=== PATIENT | female | born 1955 | race Caucasian/White ===

== ENCOUNTER 2017-07-25 05:26 | Inpatient (IN) | payer BC ==
[~2017-07-25] VITALS: Ht 165.1 cm; Wt 88.9 kg
[2017-07-25] VITALS (13 sets, daily range): BP systolic 105–139; BP diastolic 44–72
[~2017-07-25 05:26] MED LIST: FLUO20CA36 PO
--- NOTE | 2017-07-25 05:40 | NUR ---
RN NOTES ADMITTED A 62 YEARS OLD FEMALE PT FROM HOME WITH PRIMARY DIAGNOSIS OF LEFT KNEE OSTEOARTHRITIS FOR LEFT KNEE TOTAL ARTHROPLASTY. PT ALERT AND ORIENTED X4, VITAL SIGNS STABLE. PT DENIES ANY PAIN AND DISCOMFORT AT THIS TIME. SKIN AND BODY ASSESSMENT DONE, SKIN CLEAR AND INTACT. IV ACCESS STARTED ON LEFT HAND WITH G20, WITH GOOD BLOOD RETURN. PER PT SHE LAST ATE AT 8PM LAST NIGHT. PLAN OF CARE DISCUSSED WITH THE PT. WILL CONTINUE TO MONITOR PT.
--- NOTE | 2017-07-25 07:40 | NUR ---
RN NOTES PT RESTING COMFORTABLY IB BED, DENIES ANY DISCOMFORT. AWAITING FOR SCHEDULE OF SURGERY. ENDORSED TO MORNING RN FOR CONTINUITY OF CARE.
[2017-07-25] MEDS ORDERED: ACETAMINOPHEN 325 MG TABLET ONE (07:42)
[2017-07-25] MEDS ORDERED: CELECOXIB 100 MG CAPSULE ONE (07:42)
[2017-07-25] MEDS ORDERED: oxyCODONE HCL SR 10MG TAB.SR.12H PO ONE (07:42)
--- NOTE | 2017-07-25 07:43 | NUR ---
MS RN: INITIAL NOTE RECEIVED PT A/OX4. SCHEDULED FOR L KNEE ARTHOPLASTY WITH MD ZIMMERMAN IN THE AM. CONSENT SIGNED, CHECKLIST COMPLETE. PT BRP. SKIN INTACT. AMBULATORY. NPO SINCE LAST NIGHT. L HAND #20 IV HL. SITE CLEAR AND PATENT. NO DISTRESS NOTED. NO SOB NOTED. VS STABLE. TAKEN TO OR FOR SURGERY AT 7:30.
[2017-07-25] MEDS ORDERED: MIDAZOLAM HCL 2 MG/2ML VIAL ONE (08:09)
[2017-07-25] MEDS ORDERED: MORPHINE SULFATE/PF 10 MG/10ML (1MG/ML) AMPUL ONE (08:09)
[2017-07-25] MEDS ORDERED: FENTANYL PF 100MCG/2ML AMPUL ONE (08:09)
[2017-07-25] MEDS ORDERED: BACITRACIN 50000 UNITS/VIAL ONE (08:14)
[2017-07-25] MEDS ORDERED: TRANEXAMIC ACID 3,000 MG in SODIUM CHLORIDE IRRIG SOLUTION 70 ML IR ONE (08:30)
--- NOTE | 2017-07-25 11:43 | NUR ---
DIRECTOR FUNDRAISING: POST OP NOTES PT BROUGHT BACK TO FLOOR. A/OX4. TOTAL L KNEE ATRIOPLASTY DONE BY ERASMO. PT HAD SPINAL ANAESTHESIA. NO DISTRESS NOTED. NO SOB NOTED. NO PAIN NOTED. IMMOBILIZER IN PLACE. VS STABLE. BP 105/49, PULSE 68, RR 20, TEMP 97.6 02 100% ON ROOM AIR. ALL ORDERS PLACED. TELE FOR 24 HOURS, RR Q1HR FOR 24HRS , PULSE 0X CONTINUOUSLY FOR 24HRS , 5L NC IF SO2 < 92%. ALL ORDERS FAXED TO PHARMACY. RESTING COMFORTABLY IN BED. CALL LIGHT WITHIN REACH.
[2017-07-25] MEDS ORDERED: ZOLPIDEM TARTRATE 5 MG TABLET PO PRN ×2 (13:00→13:30)
[2017-07-25] MEDS ORDERED: HYDROMORPHONE INJ 0.5 MG/0.5 ML SYRINGE IV PRN (13:00)
[2017-07-25] MEDS ORDERED: SENNOSIDES 8.6 MG TABLET PO PRN (13:00)
[2017-07-25] MEDS ORDERED: ONDANSETRON HCL/PF 4 MG/2 ML VIAL IVP PRN (13:00)
[2017-07-25] MEDS ORDERED: DOCUSATE SODIUM 250 MG CAPSULE PO PRN (13:00)
[2017-07-25] MEDS ORDERED: HYDROCODONE/APAP 5/325MG 1 EACH TABLET PO PRN (13:00)
[2017-07-25] MEDS ORDERED: ACETAMINOPHEN 325 MG TABLET PO PRN (13:00)
[2017-07-25] MEDS ORDERED: BISACODYL SUPP (10 MG) 10 MG/SUPP.RECT SUPP.RECT RC PRN (13:30)
--- NOTE | 2017-07-25 13:35 | NUR ---
PT STABLE. VITAL SIGNS STABLE. CHECKING Q 15 MINS SINCE SURGERY. NO DISTRESS NOTED. ON 2L NC SATING AT 97%. NO SOB NOTED. NO PAIN NOTED. ABLE TO FEEL BLE. ABLE TO MOVE LEGS EQUALLY. LOC X4. NO CHANGES NOTED. RESTING COMFORTABLY IN BED. CALL LIGHT WITHIN REACH. ON TELE MONITORING.
[2017-07-25] MEDS: IV LR 1000 ML 1,000 ML IV PRN (14:03)
--- NOTE | 2017-07-25 15:23 | NUR ---
T STABLE. VITAL SIGNS STABLE. CHECKING Q 15 MINS SINCE SURGERY. NO DISTRESS NOTED. ON 2L NC SATING AT 99%. NO SOB NOTED. NO PAIN NOTED. ABLE TO FEEL BLE. AMBULATED WITH PT. ABLE TO MOVE LEGS EQUALLY. ON CPM MACHINE. LOC X4. NO CHANGES NOTED. RESTING COMFORTABLY IN BED. CALL LIGHT WITHIN REACH. ON TELE MONITORING.
[2017-07-25] MEDS: ANCEF 1 GM/50 ML D5W IV SCH ×2 (16:20)
--- NOTE | 2017-07-25 17:00 | NUR ---
PT STABLE. VITAL SIGNS STABLE. CHECKING Q 1 HR. NO DISTRESS NOTED. ON 2L NC SATING AT 98%. NO SOB NOTED.PAIN MEDICATIONS ADMINISTERED. ABLE TO FEEL BLE. AMBULATED WITH PT. ABLE TO MOVE LEGS EQUALLY. ON CPM MACHINE. LOC X4. NO CHANGES NOTED. RESTING COMFORTABLY IN BED. CALL LIGHT WITHIN REACH. ON TELE MONITORING
[2017-07-25] MEDS ORDERED: MAGNESIUM HYDROXIDE 30 ML UDC PO PRN (17:30)
[2017-07-25] MEDS ORDERED: MAG HYDROX/AL HYDROX/SIMETH 30 ML UDC PO PRN (17:30)
[2017-07-25] MEDS ORDERED: diphenhydrAMINE HCL 25 MG CAPSULE PO PRN (17:30)
[2017-07-25] MEDS ORDERED: ONDANSETRON HCL/PF 4 MG/2 ML VIAL IV PRN (17:30)
--- NOTE | 2017-07-25 18:37 | NUR ---
MS RN: CLOSING NOTE PT TOOK ALL MEDICATIONS ON TIME. NO ADVERSE REACTIONS NOTED. NO SOB NOTED. PAIN CONTROLLED WITH PAIN MEDICATIONS. S/P TOTAL KNEE L ATROPLASTY 07/25/17. ON TELE MONITORING FOR 24 HOURS. BRP WITH ASSIST. HODGSON CATH IN PLACE AND DRAINING. OUTPUT 750. HODGSON TO BE REMOVED PE ORDER TOMORROW . ON REGULAR DIET. NO N.V NOTED. L HAND #20 RUNNING LR AT 100ML/HR. SITE CLEAR AND PATENT. LOC CHECKED Q 4HOURS ORDERED. PAIN ASSESSED Q4 HOURS. ON 2L NC SATING AT 99%. WBAT. PT EVAL DONE. RESTING COMFORTABLY IN BED. CALL LIGHT WITHIN REACH.
--- NOTE | 2017-07-25 19:00 | NUR ---
RN OPENING NOTES RECEIVED PATIENT IN BED, ASLEEP BUT EASILY AROUSABLE, ALERT AND ORIENTED X 4, NO SOB NOTED, RECEIVING O2 VIA NC @ 3LPM, BREATHING EVEN AND UNLABORED, PT UNDER TELE MONITORING S/P LEFT TKA WITH SINUS RHYTHM @ 80BPM. PT WITH NO C/O PAIN, IN NO ACUTE DISTRESS. ALL PATIENT'S NEEDS ATTENDED TO. CALL LIGHT PLACED WITHIN EASY REACH. WILL CONTINUE TO MONITOR.
[2017-07-25] MEDS: oxyCODONE IR immediate release 5 MG PO PRN (20:17)
--- NOTE | 2017-07-25 21:00 | NUR ---
RN NOTE PATIENT ALERT AND ORIENTED X 4, NO SOB, BREATHING EVEN AND UNLABORED, IN NO ACUTE DISTRESS. ALL NEEDS ATTENDED TO AT THIS TIME. CALL LIGHT PLACED WITHIN EASY REACH. WILL CONTINUE TO MONITOR.
[2017-07-25] MEDS ORDERED: SENNOSIDES 8.6 MG TABLET PO SCH (22:00)
[2017-07-25] MEDS: PANTOPRAZOLE 40 MG TABLET.DR PO SCH (22:19)
[2017-07-25] MEDS: HYDROMORPHONE INJ 0.5 MG/0.5 ML SYRINGE IV PRN (22:29)
[2017-07-26] VITALS: BP 117/57
--- NOTE | 2017-07-26 | NUR ---
RN NOTE PT IN BED ASLEEP BUT EASILY AROUSABLE, NO CHANGE IN LOC NOTED, NO SOB, BREATHING EVEN AND UNLABORED. ALL PATIENT'S NEEDS ATTENDED TO AT THIS TIME. CALL LIGHT PLACED WITHIN EASY REACH. WILL CONTINUE TO MONITOR.
[2017-07-26] MEDS: ANCEF 1 GM/50 ML D5W IV SCH ×2 (00:42)
[2017-07-26] MEDS: IV LR 1000 ML 1,000 ML IV PRN ×2 (00:45→10:13)
--- NOTE | 2017-07-26 02:00 | NUR ---
RN NOTE PATIENT ASLEEP IN BED, NO FACIAL GRIMACING NOTED, EASILY AROUSABLE, ALERT AND ORIENTED X 4, NO CHANGE IN LOC NOTED, BREATHING EVEN AND UNLABORED. WILL CONTINUE TO MONITOR PT. CALL LIGHT PLACED WITHIN EASY REACH.
[2017-07-26 04:00] VITALS: BP 132/71
--- NOTE | 2017-07-26 04:00 | NUR ---
RN NOTE PT IN BED, ASLEEP BUT EASILY AROUSABLE, IN NO ACUTE DISTRESS, NO SOB, BREATHING EVEN AND UNLABORED, NO CHANGES IN LOC NOTED. ALL PATIENT'S NEEDS ATTENDED TO AT THIS TIME. WILL CONTINUE TO MONITOR PT.
[2017-07-26] MEDS: oxyCODONE IR immediate release 5 MG PO PRN ×3 (05:42→14:00)
--- NOTE | 2017-07-26 06:29 | NUR ---
RN CLOSING NOTE PATIENT IN BED, ALERT AND ORIENTED X 4, IN NO ACUTE DISTRESS AT THIS TIME, NO SOB NOTED, BREATHING EVEN AND UNLABORED. ALL PATIENT'S NEEDS ATTENDED TO AT THIS TIME. NOTED WITH NO CHANGES IN LEVEL OF CONSCIOUSNESS. CALL LIGHT PLACED WITHIN EASY REACH. WILL ENDORSE TO AM SHIFT NURSE FOR CONTINUITY OF CARE.
--- NOTE | 2017-07-26 06:55 | NUR ---
RN NOTE INFORMED PATIENT THAT HODGSON CATHETER NEEDS TO BE REMOVED, PATIENT VERBALIZED CONCERN THAT SHE IS HAVING A LOT PAIN AND A HARD TIME MOVING. EXPLAINED RISKS AND BENEFITS TO PATIENT X 3 BUT PATIENT CONTINUES TO REFUSE REMOVAL OF HODGSON CATHETER. RESPECTED PATIENT'S DECISION. WILL ENDORSE TO AM SHIFT NURSE FOR CONTINUITY OF CARE.
[2017-07-26] MEDS: HYDROMORPHONE INJ 0.5 MG/0.5 ML SYRINGE IV PRN ×3 (06:56→17:39)
--- NOTE | 2017-07-26 07:37 | NUR ---
TABLE MAKER: INITIAL NOTE RECEIVED PT A/OX4. NO DISTRESS NOTED. NO SOB NOTED. PAIN CONTROLLED WITH PAIN MEDICATIONS. ON TELE SR PACING AT 90 BPM. TELE MONITORING UNTIL 11 AM 07/26/17. POST 24 HOURS SURGERY. ABLE TO MOVE AND FEEL FEET BILATERALLY. CAP REFIL <3 SECONDS. REFUSED TO REMOVE HODGSON PER MD ORDER. WANTS TO SPEAK WITH MD BEFORE. ALL RISKS AND BENEFITS EXPLAINED. SKIN INTACT. L HAND #20 RUNNING LR AT 100 ML/HR. SITE CLEAR AND PATENT. RESTING COMFORTABLY IN BED. CALL LIGHT WITHIN REACH.
[2017-07-26 08:00] VITALS: BP 129/61
[2017-07-26] MEDS: DOCUSATE SODIUM 100 MG CAPSULE PO SCH ×2 (08:16→17:38)
[2017-07-26] MEDS: ASPIRIN 325 MG TABLET PO SCH (08:16)
[2017-07-26] MEDS: FLUOXETINE HCL 20 MG CAPSULE PO SCH (08:17)
--- NOTE | 2017-07-26 10:31 | NUR ---
PT TAKEN OF TELE MONITOR PER MD MOORE CONSULT. STABLE. SINUS RHYTHM 88 BPM. A/OX4. ABLE TO AMBULATE WITH PT AND WALKER IN AM. CAP REFIL <3 SECONDS.NO DISTRESS NOTED. NO SOB NOTED. PAIN CONTROLLED WITH PAIN MEDICATIONS.
--- NOTE | 2017-07-26 12:53 | NUR ---
SPOKE TO MD FERNANDES ABOUT PT WANTING TO KEEP HODGSON CATH ONE MORE DAY. ALL RISKS AND BENEFITS EXPLAINED TO PT. MD CHEN.
[2017-07-26] MEDS ORDERED: SENNOSIDES 8.6 MG TABLET PO SCH (15:20)
[2017-07-26] MEDS ORDERED: POLYETHYLENE GLYCOL 3350 17 GM POWD.PACK PO SCH (15:30)
[2017-07-26] MEDS ORDERED: HYDROCODONE/APAP 10/325MG 1 EA TABLET PO PRN (15:30)
[2017-07-26 16:00] VITALS: BP 154/77
[2017-07-26] MEDS ORDERED: MORPHINE SULFATE INJ 4 MG/ML DISP.SYRIN IM PRN (16:00)
--- NOTE | 2017-07-26 18:32 | NUR ---
MS RN: CLOSING NOTE PT TOOK ALL MEDICATIONS ON TIME. NO ADVERSE REACTIONS NOTED. NO SOB NOTED. PAIN CONTROLLED WITH PAIN MEDICATIONS. A/OX4. CHANGED TO MS PER ORDER OF MD MOORE. BRP. AMBULATES WITH WALKER AND PT. HODGSON CATH IN PLACE AND DRAINING. OUTPUT 3750. ON REGULAR DIET. L HAND #20 HL. NO IV FLUIDS RUNNING. SITE CLEAR AND PATENT. FIRST DRESSING CHANGE TO BE DONE 07/27/17 BY NURSE. HODGSON CATH STILL IN PLACE. TO BE D/C 07/27/17. MD FERNANDES AWARE OF HODGSON STILL IN PLACE PER PATIENT REQUEST TO KEEP ONE MORE DAY. RESTING COMFORTABLY IN BED. CALL LIGHT WITHIN REACH.
--- NOTE | 2017-07-26 19:10 | NUR ---
RN OPENING NOTES RECEIVED PATIENT IN BED, ALERT AND ORIENTED X 4, NO SOB NOTED, BREATHING EVEN AND UNLABORED. IN NO ACUTE DISTRESS AT THIS TIME. ALL PATIENT'S NEEDS ATTENDED TO AT THIS TIME. CALL LIGHT PLACED WITHIN EASY REACH. WILL CONTINUE TO MONITOR PT.
[2017-07-26 20:00] VITALS: BP 146/75
[2017-07-26] MEDS: PANTOPRAZOLE 40 MG TABLET.DR PO SCH (20:28)
[2017-07-27] MEDS: oxyCODONE IR immediate release 5 MG PO PRN ×4 (00:43→16:01)
--- NOTE | 2017-07-27 07:15 | NUR ---
RN CLOSING NOTES PATIENT IN BED, AWAKE, ALERT AND ORIENTED X 4, NO SOB NOTED, BREATHING EVEN AND UNLABORED, IN NO ACUTE DISTRESS AT THIS TIME. PATIENT'S CALL LIGHT PLACED WITHIN EASY REACH, PLACED BED IN LOW POSITION AND LOCKED IN PLACE. WILL ENDORSE TO AM SHIFT NURSE FOR CONTINUITY OF CARE.
--- NOTE | 2017-07-27 07:20 | NUR ---
RN OPENING NOTES RECEIVED PATIENT AWAKE ALERT AND VERBALLY RESPONSIVE, ABLE TO MAKE NEEDS KNOWN. RESPIRATIONS EVEN AND UNLABORED, NO DISTRESS NOTED. PATIENT WITH CONTINUED PAIN MANAGEMENT WEIGHT BEARING TO LLE. IV ACCESS PATENT AND INTACT, NO REDNESS OR INFILTRATION NOTED. KEPT CLEAN DRY AND COMFORTABLE, CALL LIGHT WITHIN EASY REACH WILL CONTINUE TO MONITOR
[2017-07-27 08:00] VITALS: BP 138/66
[2017-07-27 08:11] LABS: BASOPHILS % (AUTO) 0.2 % (0.0-2.0); EOSINOPHILS % (AUTO) 0.1 % (0.0-6.0); HEMATOCRIT 33 % (33-45); HEMOGLOBIN 11.3 g/dL (11.5-14.8); LYMPHOCYTES # (AUTO) 0.7 /CMM (0.8-4.8); LYMPHOCYTES % (AUTO) 7.3 % (20.0-44.0); MEAN CORPUSCULAR HEMOGLOBIN 31 PG (26.0-33.0); MEAN CORPUSCULAR HGB CONC 34 g/dl (31.0-36.0); MEAN CORPUSCULAR VOLUME 90 fL (82-100); MONOCYTES % (AUTO) 7.7 % (2.0-12.0); NEUTROPHILS # (AUTO) 8.3 /CMM (1.8-8.9); NEUTROPHILS % (AUTO) 84.7 % (43.0-81.0); PLATELET COUNT (AUTO) 205 /CMM (150-450); RDW COEFFICIENT OF VARIATION 14.1 (11.5-15.0); RED BLOOD CELL COUNT(AUTO) 3.66 MIL/uL (4.0-5.2); WHITE BLOOD COUNT (AUTO) 9.8 K/uL (4.3-11.0)
[2017-07-27 08:12] LABS: MONOCYTES # (AUTO) 0.8 /CMM (0.1-1.30)
[2017-07-27 08:21] LABS: CALCIUM, SERUM 8.7 mg/dL (8.5-10.1); CREATININE 0.8 mg/dL (0.6-1.3); MAGNESIUM 1.7 mg/dL (1.8-2.4); PHOSPHORUS 2.4 mg/dL (2.5-4.9); POTASSIUM 4.1 mmol/L (3.5-5.1)
[2017-07-27] MEDS: DOCUSATE SODIUM 100 MG CAPSULE PO SCH ×2 (08:23→16:01)
[2017-07-27] MEDS: SENNOSIDES 8.6 MG TABLET PO SCH (08:23)
[2017-07-27] MEDS: FLUOXETINE HCL 20 MG CAPSULE PO SCH (08:23)
[2017-07-27] MEDS: ASPIRIN 325 MG TABLET PO SCH (08:23)
[2017-07-27 08:32] LABS: THYROID STIMULATING HORMONE 0.935 uIU/mL (0.358-3.74)
[2017-07-27] MEDS: Magnesium 1GM/D5W 100ML PREMIX 100 ML IV SCH ×2 (12:10→13:26)
[2017-07-27] MEDS: MORPHINE SULFATE INJ 4 MG/ML DISP.SYRIN IV PRN ×2 (12:11→20:16)
[2017-07-27 18:05] VITALS: BP 128/68
[2017-07-27] MEDS ORDERED: K PHOS NEUTRAL 250 MG TABLET PO ONE (18:30)
--- NOTE | 2017-07-27 19:30 | NUR ---
RN CLOSING NOTES PATIENT AWAKE ALERT AND VERBALLY RESPONSIVE, ABLE TO MAKE NEEDS KNOWN. RESPIRATIONS EVEN AND UNLABORED, NO DISTRESS NOTED. PATIENT WITH CONTINUED PAIN MANAGEMENT WEIGHT BEARING TO LLE TOLERATED. IV ACCESS PATENT AND INTACT, NO REDNESS OR INFILTRATION NOTED. KEPT CLEAN DRY AND COMFORTABLE, CALL LIGHT WITHIN EASY REACH WILL ENDORSED TO NEXT SHIFT FOR CONTINUITY OF CARE
--- NOTE | 2017-07-27 19:30 | NUR ---
RN NOTES PATIENT WITH NEUTRA PHOS REPLACEMENT, COSMETICS DEMONSTRATOR RN WILL ADMINISTER
--- NOTE | 2017-07-27 20:00 | NUR ---
Pt upset over what happened today A/A/ o times 4 will medicate for pain
[2017-07-27 20:12] VITALS: BP 137/67
[2017-07-27] MEDS: PANTOPRAZOLE 40 MG TABLET.DR PO SCH (20:48)
--- NOTE | 2017-07-27 23:22 | NUR ---
patient recieved asleep and resp even and unlabored asleep
[2017-07-28] MEDS: oxyCODONE IR immediate release 5 MG PO PRN ×2 (01:26→20:16)
--- NOTE | 2017-07-28 05:20 | NUR ---
MS. LEONARD REMAINS ALERT AND ORIENTATED. LAST MEDICATED WITH OXY IR 15MG AND EFFECTIVE FOR PAIN LEFT LEG. LEFT LEG WARM AND CAPILLARY REFILL <3SEC. MOVEMENT TO THE TOES PRESENT aT NIGHT SHE WILL ASK FOR THE BED KEMP TO VOID, VOIDING QS CLEAR PALE YELLOW.
--- NOTE | 2017-07-28 07:10 | NUR ---
ms rn initial notes Received patient in bed, awake, head of bed elevated, no SOB or distress noted, on room air and tolerated well. IV intact and patent HL only. Left knee immobilizer in placed. Alert and oriented x 4, verbally responsive and able to make needs known. No complaint of pain or discomfort at this time. Informed about pain medication that is due any time when she ask. Call light with in patient reach, will continue to monitor accordingly.
[2017-07-28 08:00] VITALS: BP 124/56
[2017-07-28 08:24] LABS: CALCIUM, SERUM 8.4 mg/dL (8.5-10.1); CREATININE 0.7 mg/dL (0.6-1.3); MAGNESIUM 1.9 mg/dL (1.8-2.4); PHOSPHORUS 3.2 mg/dL (2.5-4.9); POTASSIUM 3.7 mmol/L (3.5-5.1)
[2017-07-28] MEDS: MORPHINE SULFATE INJ 4 MG/ML DISP.SYRIN IV PRN ×2 (08:27→16:26)
[2017-07-28] MEDS: ASPIRIN 325 MG TABLET PO SCH (08:28)
[2017-07-28] MEDS: SENNOSIDES 8.6 MG TABLET PO SCH (08:28)
[2017-07-28] MEDS: FLUOXETINE HCL 20 MG CAPSULE PO SCH (08:28)
[2017-07-28] MEDS: DOCUSATE SODIUM 100 MG CAPSULE PO SCH ×2 (08:28→16:26)
--- NOTE | 2017-07-28 14:17 | NUR ---
ms rn notes Patient verbalized that she hasn't gone to the bathroom since Sunday and called MD and ordered Fleet enema PRN. All orders carried out and noted. Will continue to monitor accordingly.
[2017-07-28] MEDS ORDERED: NA PHOS,M-B/NA PHOS,DI-BA 1 EA ENEMA RC PRN (14:30)
[2017-07-28 16:00] VITALS: BP_SYST 127; BP_DIAS 61; BP_DIAS 71
--- NOTE | 2017-07-28 19:14 | NUR ---
ms rn closing notes All needs provided, attended, and anticipated. call light with in patient reach, endorsed to next shift RN to continue care.
--- NOTE | 2017-07-28 19:40 | NUR ---
MSRN FULLY AWAKE, PAIN ON LEFT KNEE LEVEL 6/10. WANTED TO HAVE ORAL PAIN MED . DRESSING D/I. OFFERED CPM, STATED WILL DO ONLY 1 HOUR AFTER PAIN MED. TO CONTINUE.
[2017-07-28 20:00] VITALS: BP 138/73
--- NOTE | 2017-07-28 20:15 | NUR ---
MSRN ADMINISTERED OXY IR 15 MG PO , CPM AT AT 40 DEGREES, ABLE TO TOLERATE PAIN. KEPT COMFORTABLE, ALL NEEDS MADE. TO CONTINUE.
[2017-07-28 21:07] VITALS: BP 138/73
[2017-07-28] MEDS: PANTOPRAZOLE 40 MG TABLET.DR PO SCH (21:37)
--- NOTE | 2017-07-29 00:30 | NUR ---
MSRN HEADACHE, TYLENOL 650 MG PO ADMINISTERED. WENT BACK TO SLEEP.
--- NOTE | 2017-07-29 06:55 | NUR ---
MSRN NO NEEDS ATTENDED, LEFT KNEE PAIN TOLERABLE.
--- NOTE | 2017-07-29 07:05 | NUR ---
ms rn initial notes Received patient in bed, awake, head of bed elevated, no SOB or distress noted, on room air. Alert and oriented x 4, verbally responsive and able to make needs known. No complaint of pain or discomfort at this time. IV intact and patent HL only. Call light with in patient reach, will continue to monitor accordingly.
[2017-07-29 08:00] VITALS: BP 123/63
[2017-07-29] MEDS: SENNOSIDES 8.6 MG TABLET PO SCH (08:14)
[2017-07-29] MEDS: FLUOXETINE HCL 20 MG CAPSULE PO SCH (08:14)
[2017-07-29] MEDS: DOCUSATE SODIUM 100 MG CAPSULE PO SCH (08:14)
[2017-07-29] MEDS: ASPIRIN 325 MG TABLET PO SCH (08:14)
[2017-07-29] MEDS: MORPHINE SULFATE INJ 4 MG/ML DISP.SYRIN IV PRN (09:08)
[2017-07-29] MEDS ORDERED: OXYC-133 PO ×2 (10:27→10:30)
[2017-07-29] MEDS: oxyCODONE IR immediate release 5 MG PO PRN (14:34)
--- NOTE | 2017-07-29 16:15 | NUR ---
ms photo journalist notes discharge instructions given to patient and able to understand instructions. Signed discharge paper, and belonging list. Prescription given. Health teaching and education rendered. IV access discontinued and pressured applied to prevent bleeding. Informed patient to follow up with primary health care physician in 1-2 weeks, and to follow up with ortho in 1 week. Patient is alert and oriented x 4, verbally responsive and able to make needs known. No complaint of pain or discomfort at this time. Patient left in stable condition accompanied by cousin. MD and charge nurse aware.
== END 2017-07-29 16:14 | disposition home or self-care (01) | DRG 470 ==
LOC: DS 05:26 → MED 05:27 → TELE 20:38 → MED 07-26 09:39
PROVIDERS: ADMIT Specialist; ATTEND Specialist
PROC: 0SRD0J9 Replacement of Left Knee Joint with Synthetic Substitute, Cemented, Open Approach (ICD-10-PCS; principal; 2017-07-25 10:30)
DX: M17.12 Unilateral primary osteoarthritis, left knee (principal); E44.0 Moderate protein-calorie malnutrition; E61.1 Iron deficiency; E66.9 Obesity, unspecified; F32.9 Major depressive disorder, single episode, unspecified; Z68.32 Body mass index [BMI] 32.0-32.9, adult; E78.5 Hyperlipidemia, unspecified; K21.9 Gastro-esophageal reflux disease without esophagitis; Z96.642 Presence of left artificial hip joint; Z79.82 Long term (current) use of aspirin; M81.0 Age-related osteoporosis without current pathological fracture; D63.8 Anemia in other chronic diseases classified elsewhere; Z98.890 Other specified postprocedural states
CPT/HCPCS: 36415; 80048-TC; 82746; 83540-TC; 83735-TC; 84100-TC; 84443-TC; 85025-TC; 85027-TC; 86850-TC; 86921-TC; 87081-TC; 88305-TC; 88311-TC; 97110-TC; 97116-TC; 97530-TC; 97760-TC; A4217; J0690; J2250; J2270; J2274; J3010; J3475; J7030; J7060; J7120; Z7610